=== PATIENT | male | born 1990 | race Caucasian/White ===

== ENCOUNTER 2018-01-13 23:15 | Emergency (ER) | payer OTHER ==
[2018-01-14] MEDS ORDERED: PREDNISONE 20 MG TABLET PO ONE (00:08)
--- NOTE | 2018-01-14 00:11 | ER Document Report ---
HPI - HPI Patient complains to provider of: skin rash Onset/Duration: Persistent Pain Level: 4 Context: Patient presents complaining of pruritic skin rash that he has had for the past 4 days. Patient states that his dog has gotten outside in poison michelle and whenever he gave the dog a bath he thinks he contracted the poison michelle from his dog. Patient denies any concerns about any kind of sexually transmitted infection. Patient does complain of rash to perineum and left upper extremity Associated Symptoms: Other - Skin rash. denies: Fever, Headache Exacerbated by: Denies Relieved by: Denies Similar symptoms previously: No Recently seen / treated by doctor: No - ROS ROS below otherwise negative: Yes Systems Reviewed and Negative: Yes All other systems reviewed and negative - CONSTITUTIONAL Constitutional: DENIES: Fever, Chills - EENT EENT: DENIES: Sore Throat - NEURO Neurology: DENIES: Headache - DERM Skin Problems: Rash Past Medical History - General Information source: Patient - Social History Smoking Status: Never Smoker Frequency of alcohol use: None Drug Abuse: None Occupation: Active duty Lives with: Family Family History: Reviewed & Not Pertinent - Medical History Medical History: Negative GI Medical History: Reports: Hx Gastroesophageal Reflux Disease Past Surgical History: Reports: Hx Abdominal Surgery - 2X hernia repair, Hx Appendectomy, Hx Oral Surgery - wisdom teeth, extractions - Immunizations Hx Diphtheria, Pertussis, Tetanus Vaccination: Yes Vertical Provider Document - CONSTITUTIONAL Agree With Documented VS: Yes Exam Limitations: No Limitations General Appearance: WD/WN, No Apparent Distress - HEENT HEENT: Atraumatic, Normocephalic - NECK Neck: Normal Inspection - RESPIRATORY Respiratory: Breath Sounds Normal, No Respiratory Distress - CARDIOVASCULAR Cardiovascular: Regular Rhythm, No Murmur, Bradycardia - REPRODUCTIVE Male Genitalia: Abnormal Inspection - Erythematous macular lesions to scrotum, RN Kayce Quiroz standby No inguinal lymphadenopathy, no vesicular skin lesions - BACK Back: Normal Inspection - MUSCULOSKELETAL/EXTREMETIES Musculoskeletal/Extremeties: JULITA PASCUAL - NEURO Level of Consciousness: Awake, Alert, Appropriate Motor/Sensory: No Motor Deficit - DERM Integumentary: Warm, Dry, Rash - Erythematous macular lesions to left upper extremity with scattered vesicular lesions Course - Re-evaluation Re-evalutation: 01/14/18 00:09 Patient with skin rash consistent with contact dermatitis. Discussed treatment and skin care regimen. Discussed worsening symptoms of patient to return immediately for. - Vital Signs Vital signs: Temp Pulse Resp BP Pulse Ox 97.8 F 55 L 14 119/66 99 01/13/18 23:42 01/13/18 23:42 01/13/18 23:42 01/13/18 23:42 01/13/18 23:42 Discharge - Discharge Clinical Impression: Contact dermatitis Qualifiers: Contact dermatitis type: unspecified Contact dermatitis trigger: unspecified trigger Qualified Code(s): L25.9 - Unspecified contact dermatitis, unspecified cause Condition: Stable Disposition: HOME, SELF-CARE Instructions: Antihistamines ([facility]), Poison Michelle ([facility]), Steroid Medication Additional Instructions: Return immediately for any new or worsening symptoms Followup with your primary care provider, call tomorrow to make a followup appointment You may use [id number] skin cleanser such as technu to help wash plant oils from the skin Prescriptions: Hydroxyzine HCl [Atarax 25 mg Tablet] 1 - 2 tab PO QID #25 tablet Prednisone [Deltasone 5 mg Tablet] 5 mg PO ASDIR PRN #100 tablet PRN Reason: Referrals: [facility] [Provider Group] - Follow up as needed
[2018-01-14 00:45] VITALS: BP 128/59
== END 2018-01-14 00:44 | disposition home or self-care (01) ==
LOC: ER 23:15
DX: L25.9 Unspecified contact dermatitis, unspecified cause (principal)
CPT/HCPCS: 99282; J7512

== ENCOUNTER 2018-01-24 03:40 | Emergency (ER) | payer OTHER ==
[2018-01-24] MEDS ORDERED: ONDANSETRON HCL INJ/PF 4 MG/2 ML SDV IV ONE (04:06)
[2018-01-24] MEDS ORDERED: MORPHINE SULFATE 10 MG/ML INJ IV ONE (04:06)
[2018-01-24] MEDS ORDERED: NORMAL SALINE 1000 ML 1,000 ML IV ONE ×2 (04:07→07:35)
--- NOTE | 2018-01-24 04:08 | ER Document Report ---
ED GI/ - General TRAVEL OUTSIDE OF THE [place] IN LAST 30 DAYS: No <FRED VALDES - Last Filed: 01/24/18 07:16> <MESFINJUNIELAURA - Last Filed: 01/24/18 08:11> - General Chief Complaint: Abdominal Pain Stated Complaint: ABDOMINAL PAIN Time Seen by Provider: 01/24/18 03:58 Notes: Patient is a 27-year-old male comes emergency department for chief complaint of upper abdominal pain and vomiting that started a few hours ago, he states that alcohol yesterday, he states today he began to have abdominal pain, he states he read online that drinking caffeinated sodas would help so he started drinking caffeinated sodas which made the pain worse and he started vomiting. He denies hematemesis, black stools, he has had a normal bowel movement in the past 24 hours. He states he has been evaluated previously, had an ultrasound of the gallbladder that showed polyps but no stones, states he was diagnosed with esophagitis and gastritis in the past but is not medicated for it. He has had an appendectomy, umbilical and inguinal hernia repairs. He denies smoking, regular alcohol, recreational drugs. (FRED VALDES) - Related Data Allergies/Adverse Reactions: No Known Allergies Allergy (Verified 01/13/18 23:37) Past Medical History - General Information source: Patient - Social History Smoking Status: Never Smoker Frequency of alcohol use: Occasional Drug Abuse: None Lives with: Family Family History: Reviewed & Not Pertinent Renal/ Medical History: Denies: Hx Peritoneal Dialysis GI Medical History: Reports: Hx Gastroesophageal Reflux Disease Past Surgical History: Reports: Hx Abdominal Surgery - 2X hernia repair, Hx Appendectomy, Hx Oral Surgery - wisdom teeth, extractions - Immunizations Immunizations up to date: Yes Hx Diphtheria, Pertussis, Tetanus Vaccination: Yes <FRED VALDES - Last Filed: 01/24/18 07:16> Review of Systems - Review of Systems Constitutional: No symptoms reported EENT: No symptoms reported Cardiovascular: No symptoms reported Respiratory: No symptoms reported Gastrointestinal: See HPI Genitourinary: No symptoms reported Male Genitourinary: No symptoms reported Musculoskeletal: No symptoms reported Skin: No symptoms reported Hematologic/Lymphatic: No symptoms reported Neurological/Psychological: No symptoms reported <FRED VALDES - Last Filed: 01/24/18 07:16> Physical Exam - General General appearance: Anxious In distress: Moderate - Patient in obvious discomfort - HEENT Head: Normocephalic, Atraumatic Eyes: Normal Extraocular movements intact: Yes Eyelashes: Normal Pupils: PERRL Mouth/Lips: Normal Mucous membranes: Normal Pharynx: Normal Neck: Normal - Respiratory Respiratory status: No respiratory distress Breath sounds: Normal. No: Decreased air movement, Wheezing - Cardiovascular Rhythm: Regular. No: Tachycardia Heart sounds: Normal auscultation, S1 appreciated, S2 appreciated - Abdominal Tenderness: Tender - very tender in epigastric, RUQ and LUQ areas; lower abdomen is mildly tender - Back Back: Normal, Nontender. No: Tender - Extremities General upper extremity: Normal inspection, Nontender, Normal strength, Normal temperature General lower extremity: Normal inspection, Nontender, Normal strength, Normal temperature. 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 Sensory: Normal - Psychological Associated symptoms: Anxious - Skin Skin Temperature: Warm Skin Moisture: Dry Skin Color: Normal <FRED VALDES - Last Filed: 01/24/18 07:16> - Vital signs Vitals: Temp Pulse Resp BP Pulse Ox 97.5 F 68 18 149/73 H 98 01/24/18 03:47 01/24/18 03:47 01/24/18 03:47 01/24/18 03:47 01/24/18 03:47 Course - Laboratory Result Diagrams: 01/24/18 04:13 01/24/18 04:13 <FRED VALDES - Last Filed: 01/24/18 07:16> - Laboratory Result Diagrams: 01/24/18 04:13 01/24/18 04:13 <LAURA SHORT - Last Filed: 01/24/18 08:11> - Re-evaluation Re-evalutation: Patient is uncomfortable on initial evaluation, he has tenderness diffusely over the upper abdomen with some guarding, lower abdomen with only mild tenderness. No tachycardia, hypotension, or fever. Lipase is not elevated, chemistry is unremarkable including LFTs and bilirubin. CBC shows leukocytosis at 17.5 with elevation of neutrophils but no bandemia. On reevaluation patient actually looks worse, appears more comfortable after pain medication. Acute abdominal series was performed to rule out esophageal perforation or free air, acute abdominal series unremarkable. Discussed with Dr. Soto. 01/24/18 CT of the abdomen and pelvis with mild splenomegaly but no acute findings. Suspect patient has gastritis and gastroenteritis based on his history, reported symptoms, and presentation, no evidence of perforation. Treating with Carafate, Protonix. 01/24/18 07:16 Introduced to Laura Short DRYING MACHINE OPERATOR at bedside, patient will continue treatments, start tolerating fluids, plan is to go home with GI follow-up. (FRED VALDES) 01/24/18 07:38 assumed care, pt thirsty, another liter of fluid ordered, tender mostly epigastric and RUQ, milder LUQ. will recheck after 2nd liter. also will try GI cocktail 01/24/18 08:11 Feels better after the GI cocktail second IV fluid he is up to the bathroom and he is drinking Gatorade will send home with Nexium prescription he milligrams daily (LAURA SHORT) - Vital Signs Vital signs: Temp Pulse Resp BP Pulse Ox 97.5 F 68 18 149/73 H 98 01/24/18 03:47 01/24/18 03:47 01/24/18 03:47 01/24/18 03:47 01/24/18 03:47 - Laboratory Laboratory results interpreted by me: 01/24/18 01/24/18 04:13 04:13 WBC 17.5 H Seg Neuts % (Manual) 95 H Lymphocytes % (Manual) 0 L Abs Neuts (Manual) 16.6 H Abs Lymphs (Manual) 0.4 L BUN 25 H Glucose 123 H Alkaline Phosphatase 37 L Discharge <FRED VALDES - Last Filed: 01/24/18 07:16> <LAURA SHORT - Last Filed: 01/24/18 08:11> - Discharge Clinical Impression: Upper abdominal pain, Splenomegaly Vomiting Qualifiers: Vomiting type: unspecified Vomiting Intractability: non-intractable Nausea presence: with nausea Qualified Code(s): R11.2 - Nausea with vomiting, unspecified Condition: Good Disposition: HOME, SELF-CARE Instructions: Abdominal Pain ([facility]), Antinausea Medication ([facility]), Vomiting ([facility]) , Prilosec (Acid Pump Inhibitor) ([facility]) Additional Instructions: Take the Nexium daily See your doctor at sick call to follow-up Referral to gastroenterology If the symptoms persist or get worse to you seen any black stools he needs to follow-up immediately No alcohol, take Tylenol for pain and headache and not the ibuprofen Prescriptions: Esomeprazole Magnesium [Nexium] 40 mg PO DAILY #30 [email or web address].pkt
[2018-01-24 04:50] LABS: HEMATOCRIT 48.1 % (37.9-51.0); HEMOGLOBIN 16.5 g/dL (13.5-17.0); MEAN CORPUSCULAR HEMOGLOBIN 29.8 pg (27.0-33.4); MEAN CORPUSCULAR HGB CONC 34.3 g/dL (32.0-36.0); MEAN CORPUSCULAR VOLUME 87 fl (80-97); PLATELET COUNT 179 10^3/uL (150-450); RED BLOOD COUNT 5.54 10^6/uL (4.35-5.55); RED CELL DISTRIBUTION WIDTH 12.9 % (11.5-14.0); WHITE BLOOD COUNT 17.5 10^3/uL (4.0-10.5)
[2018-01-24] MEDS ORDERED: FENTANYL CITRATE INJ/PF 100 MCG/2 ML AMPUL IV ONE (05:00)
[2018-01-24 05:09] LABS: ALANINE AMINOTRANSFERASE 39 U/L (21-72); ALBUMIN 4.9 g/dL (3.5-5.0); ALKALINE PHOSPHATASE 37 U/L (38-126); ANION GAP 13 (5-19); ASPARTATE AMINO TRANSFERASE 29 U/L (17-59); BILIRUBIN,DIRECT 0.3 mg/dL (0.0-0.4); BILIRUBIN,TOTAL 0.8 mg/dL (0.2-1.3); BLOOD UREA NITROGEN 25 mg/dL (7-20); CALCIUM 9.6 mg/dL (8.4-10.2); CARBON DIOXIDE 28 mmol/L (22-30); CHLORIDE 102 mmol/L (98-107); GLUCOSE 123 mg/dL (75-110); LIPASE 200.7 U/L (23-300); POTASSIUM 4.4 mmol/L (3.6-5.0); SODIUM 142.8 mmol/L (137-145); TOTAL PROTEIN 7.8 g/dL (6.3-8.2)
[2018-01-24 05:15] LABS: ABSOLUTE LYMPHOCYTES# (MANUAL) 0.4 10^3/uL (0.5-4.7); ABSOLUTE MONOCYTES # (MANUAL) 0.5 10^3/uL (0.1-1.4); ABSOLUTE NEUTROPHILS# (MANUAL) 16.6 10^3/uL (1.7-8.2); BASOPHILS % (MANUAL) 0 % (0-2); EOSINOPHILS % (MANUAL) 0 % (0-6); LYMPHOCYTES % (MANUAL) 0 % (13-45); MONOCYTES % (MANUAL) 3 % (3-13); OVALOCYTES SLIGHT; POIKILOCYTOSIS SLIGHT; SEGMENTED NEUTROPHILS % (MAN) 95 % (42-78); TOTAL CELLS COUNTED 100; TOXIC GRANULATION SLIGHT
[2018-01-24 05:16] LABS: PLATELET COMMENT ADEQUATE
--- NOTE | 2018-01-24 05:55 | RADIOLOGY REPORT (SQ) ---
EXAM DESCRIPTION: ACUTE ABDOMEN SERIES CLINICAL HISTORY: 27 years, Male, severe epigastric pain; free air? COMPARISON: None. NUMBER OF VIEWS/TECHNIQUE: 3 LIMITATIONS: None. FINDINGS: Intestinal gas pattern is within normal limits. No evidence of obstruction or perforation. No suspicious calcification. Grossly intact skeletal structures. No acute cardiopulmonary findings. IMPRESSION: No acute findings.
--- NOTE | 2018-01-24 06:40 | RADIOLOGY REPORT (SQ) ---
EXAM DESCRIPTION: CT ABD/PELVIS WITH IV ONLY CLINICAL HISTORY: 27 years Male, severe mid/upper abd pain COMPARISON: CR, same day. TECHNIQUE: No contrast. Coronal and sagittal reformat. This exam was performed according to our departmental dose-optimization program, which includes automated exposure control, adjustment of the mA and/or kV according to patient size and/or use of iterative reconstruction technique. FINDINGS: No free fluid. Moderate splenomegaly with splenic index of 854. Appendectomy clips. 1.9 cm likely benign cystic fluid/scar associated with the left inguinal canal. Inferior thorax, liver, gallbladder, pancreas, adrenals, renal system, gastrointestinal tract, pelvic organs, lymphatics, vasculature, and musculoskeleton appear otherwise unremarkable. IMPRESSION: Moderate splenomegaly.
[2018-01-24] MEDS ORDERED: SUCRALFATE 1 GM TABLET PO ONE (06:44)
[2018-01-24] MEDS ORDERED: PANTOPRAZOLE SODIUM 40 MG VIAL IV ONE (06:45)
[2018-01-24] MEDS ORDERED: MAG HYDROX/AL HYDROX/SIMETH SUSP 30 ML UDCUP PO ONE (07:42)
[2018-01-24] MEDS ORDERED: LIDOCAINE 2% VISCOUS SOLN 20 ML UDCUP PO ONE (07:42)
[2018-01-24 09:12] VITALS: BP 119/60
== END 2018-01-24 09:11 | disposition home or self-care (01) ==
LOC: ER 03:40
DX: R16.1 Splenomegaly, not elsewhere classified (principal); R10.10 Upper abdominal pain, unspecified; R11.2 Nausea with vomiting, unspecified; D72.828 Other elevated white blood cell count; F41.9 Anxiety disorder, unspecified; R10.816 Epigastric abdominal tenderness; R10.811 Right upper quadrant abdominal tenderness; R10.812 Left upper quadrant abdominal tenderness; Z87.19 Personal history of other diseases of the digestive system; Z90.49 Acquired absence of other specified parts of digestive tract
CPT/HCPCS: 99284; 96361; 96374; 96375; 36415; 83690; 85025; 80053; 74022; 74177; J3010; J3490; J2270; S0164; J2405; J7030

== ENCOUNTER 2019-12-22 20:52 | Emergency (ER) | payer OTHER ==
[2019-12-22] MEDS ORDERED: TETRACAINE HCL 0.5% OPH SOLN 4 ML OS ONE (21:35)
--- NOTE | 2019-12-22 21:37 | ER Document Report ---
ED Medical Screen (RME) - General Chief Complaint: Foreign Body in Eye Stated Complaint: FORIEGN OBJECT IN EYE Time Seen by Provider: 12/22/19 21:30 TRAVEL OUTSIDE OF THE [place] IN LAST 30 DAYS: No - HPI Notes: 12/22/19 21:35 Patient is a 29-year-old male who was grinding metal today presents complaining of foreign body sensation to his left eye. He is not sure if the metal shaving made into the eye or it was 1 of the [place]. He does have irritation and redness associated. He does not wear contacts. Tetanus <5yrs ago per pt. No fever, CP, SOB. I have treated and performed a rapid initial assessment of this patient. A comprehensive ED assessment and evaluation of the patient, analysis of test results and completion of medical decision making process will be conducted by additional ED providers. PHYSICAL EXAMINATION: GENERAL: Well-appearing, well-nourished and in no acute distress. A&Ox4. Answers questions appropriately. Left eye: Injected conjunctiva. Watery discharge. - Related Data Allergies/Adverse Reactions: No Known Allergies Allergy (Verified 01/13/18 23:37) Past Medical History Renal/ Medical History: Denies: Hx Peritoneal Dialysis GI Medical History: Reports: Hx Gastroesophageal Reflux Disease Past Surgical History: Reports: Hx Abdominal Surgery - 2X hernia repair, Hx Appendectomy, Hx Oral Surgery - wisdom teeth, extractions - Immunizations Immunizations up to date: Yes Hx Diphtheria, Pertussis, Tetanus Vaccination: Yes Physical Exam - Vital signs Vitals: Temp Pulse Resp BP Pulse Ox 98.2 F 61 20 150/83 H 95 12/22/19 21:10 12/22/19 21:10 12/22/19 21:10 12/22/19 21:10 12/22/19 21:10 Course - Vital Signs Vital signs: Temp Pulse Resp BP Pulse Ox 98.2 F 61 20 150/83 H 95 12/22/19 21:10 12/22/19 21:10 12/22/19 21:10 12/22/19 21:10 12/22/19 21:10
--- NOTE | 2019-12-23 00:16 | ER Document Report ---
ED Eye Complaint - General Chief Complaint: Foreign Body in Eye Stated Complaint: FORIEGN OBJECT IN EYE Time Seen by Provider: 12/22/19 21:30 Primary Care Provider: CHIDI FOSTER MD [ACTIVE STAFF] - 12/26/19 Notes: Patient is a 29-year-old male that comes emergency department for chief complaint of left eye pain. He states he was grinding metal today and he thinks that something went into his eye. He states that he has a foreign body sensation in his left eye. He states that his eye has been watering but he denies discharge, visual loss, or any other complaints. He denies contacts or glasses use. His tetanus is up-to-date within 5 years. TRAVEL OUTSIDE OF THE [place] IN LAST 30 DAYS: No - Related Data Allergies/Adverse Reactions: No Known Allergies Allergy (Verified 01/13/18 23:37) Home Medications: pantaprozole. vitamin D3. vitamin B12. hyoscyamine. phenergan Past Medical History - General Information source: Patient, Relative - Social History Smoking Status: Never Smoker Chew tobacco use (# tins/day): Yes Frequency of alcohol use: None Drug Abuse: None Lives with: Family Family History: Reviewed & Not Pertinent Patient has suicidal ideation: No Patient has homicidal ideation: No Renal/ Medical History: Denies: Hx Peritoneal Dialysis GI Medical History: Reports: Hx Gastroesophageal Reflux Disease Past Surgical History: Reports: Hx Abdominal Surgery - 2X hernia repair, Hx Appendectomy, Hx Oral Surgery - wisdom teeth, extractions - Immunizations Immunizations up to date: Yes Hx Diphtheria, Pertussis, Tetanus Vaccination: Yes Review of Systems - Review of Systems Constitutional: No symptoms reported EENT: See HPI Cardiovascular: No symptoms reported Respiratory: No symptoms reported Gastrointestinal: No symptoms reported Genitourinary: No symptoms reported Male Genitourinary: No symptoms reported Musculoskeletal: No symptoms reported Skin: No symptoms reported Hematologic/Lymphatic: No symptoms reported Neurological/Psychological: No symptoms reported Physical Exam - Vital signs Vitals: Temp Pulse Resp BP Pulse Ox 98.2 F 61 20 150/83 H 95 12/22/19 21:10 12/22/19 21:10 12/22/19 21:10 12/22/19 21:10 12/22/19 21:10 - Notes Notes: GENERAL: Alert, interacts well. No acute distress. HEAD: Normocephalic, atraumatic. EYES: Pupils equal, round, and reactive to light. Extraocular movements intact. Sclera of the left eye is minimally injected. No discharge. No superficial foreign body, there is a tiny amount of fluorescein uptake in the left lateral cornea near the 3 o'clock position. Negative Brigitte sign. ENT: Oral mucosa moist, tongue midline. Oropharynx unremarkable. Airway patent. Nares patent, no nasal septal hematoma LUNGS: Clear to auscultation bilaterally, no wheezes, rales, or rhonchi. No respiratory distress. HEART: Regular rate and rhythm. No murmur ABDOMEN: Soft, non-tender. Non-distended. Bowel sounds present in all 4 quadrants. GENITOURINARY: Deferred EXTREMITIES: Moves all 4 extremities spontaneously. No edema, normal radial and dorsalis pedis pulses bilaterally. No cyanosis. BACK: no cervical, thoracic, lumbar midline tenderness. No saddle anesthesia, normal distal neurovascular exam. Moves all extremities in full range of motion. NEUROLOGICAL: Alert and oriented x3. Normal speech. Cranial nerves II through XII grossly intact. PSYCH: Normal affect, normal mood. SKIN: Warm, dry, normal turgor. No rashes or lesions noted. Course - Re-evaluation Re-evalutation: Patient with normal visual acuity. He has some injection of the left sclera but no discharge. Normal EOMs and pupil. No embedded foreign body noted. When fluorescein drops were placed symptoms completely resolved. Initially I saw nothing on Marcial lamp examination but on slit-lamp examination there was a tiny area consistent with a corneal abrasion. No concerning findings otherwise. Patient was provided with Polytrim from here to go home with, discussed symptomatic treatment, discussed close ophthalmology follow-up, discussed return precautions. Patient states appreciation and agreement. Stable at time of discharge. - Vital Signs Vital signs: Temp Pulse Resp BP Pulse Ox 98.6 F 62 16 128/69 H 100 12/23/19 00:59 12/23/19 00:59 12/23/19 00:59 12/23/19 00:59 12/23/19 00:59 Discharge - Discharge Clinical Impression: Left eye pain Corneal abrasion Qualifiers: Encounter type: initial encounter Laterality: left Qualified Code(s): S05.02XA - Injury of conjunctiva and corneal abrasion without foreign body, left eye, initial encounter Condition: Stable Disposition: HOME, SELF-CARE Additional Instructions: Your evaluation indicates a corneal abrasion, however I do not see any foreign body. I recommend that you use the Polytrim eyedrops, 1 drop 4 times a day for 7 days. Use the provided pain medication if needed to sleep, use to the provided pain drop if needed. If symptoms continue please follow-up with the model photographers' referral. Come back if you worsen including severe worsening pain, loss of vision, discolored discharge, or any other concerning symptoms. Prescriptions: Ketorolac Tromethamine [Acular] 5 ml OP ASDIR PRN #1 drops PRN Reason: Forms: Return to Work Referrals: CHIDI FOSTER MD [ACTIVE STAFF] - 12/26/19
[2019-12-23] MEDS ORDERED: HYDROCODONE/ACETAMINOPHEN 5-325 MG (6 TAB/ER DISP) PO PRN (00:47)
[2019-12-23] MEDS ORDERED: POLYMYXIN B SULFATE/TMP OPH SOLN (10 ML/ER DISP) OS ONE (00:47)
[2019-12-23 01:09] VITALS: BP 128/69
== END 2019-12-23 01:08 | disposition home or self-care (01) ==
LOC: ER 20:52
DX: S05.02XA Injury of conjunctiva and corneal abrasion without foreign body, left eye, initial encounter (principal); X58.XXXA Exposure to other specified factors, initial encounter; K21.9 Gastro-esophageal reflux disease without esophagitis; Z79.899 Other long term (current) drug therapy; Z72.0 Tobacco use
CPT/HCPCS: 99283; J3490